=== PATIENT | female | born 1955 | race Two or more races ===

== ENCOUNTER 2017-04-06 10:47 | Outpatient (CLI) | payer OTHER | END 2017-04-06 11:01 | disposition home or self-care (01) | LOC: MRI 10:47 | DX: M50.323 Other cervical disc degeneration at C6-C7 level (principal) | CPT/HCPCS: 72141 ==

== ENCOUNTER 2017-04-06 13:02 | Outpatient (CLI) | payer OTHER | END 2017-04-06 14:00 | disposition home or self-care (01) | LOC: NUCLEAR 13:02 | DX: M85.80 Other specified disorders of bone density and structure, unspecified site (principal) ==

== ENCOUNTER 2017-06-30 08:01 | Outpatient (CLI) | payer OTHER | END 2017-06-30 09:24 | disposition home or self-care (01) | LOC: MAMO-SONO 08:01 | DX: Z12.31 Encounter for screening mammogram for malignant neoplasm of breast (principal) ==

== ENCOUNTER 2017-08-30 08:20 | Outpatient (CLI) | payer OTHER | END 2017-08-30 08:49 | disposition home or self-care (01) | LOC: RAD 501 08:20 | DX: M54.12 Radiculopathy, cervical region (principal); M48.02 Spinal stenosis, cervical region ==

== ENCOUNTER 2017-11-24 10:30 | Outpatient (CLI) | payer OTHER | END 2017-11-24 16:59 | disposition home or self-care (01) | LOC: RAD 10:30 | DX: M48.02 Spinal stenosis, cervical region (principal) ==

== ENCOUNTER 2018-04-06 14:00 | Outpatient (CLI) | payer OTHER | END 2018-04-06 14:04 | disposition home or self-care (01) | LOC: SONOGRAMA 14:00 | DX: M48.02 Spinal stenosis, cervical region (principal); M25.512 Pain in left shoulder ==

== ENCOUNTER 2018-04-12 12:20 | Outpatient (CLI) | payer OTHER | END 2018-04-12 12:40 | disposition home or self-care (01) | LOC: RAD 12:20 | DX: M25.571 Pain in right ankle and joints of right foot (principal) ==

== ENCOUNTER 2018-05-15 10:22 | Outpatient (CLI) | payer OTHER | END 2018-05-15 10:34 | disposition home or self-care (01) | LOC: RAD 10:22 | DX: S82.64XA Nondisplaced fracture of lateral malleolus of right fibula, initial encounter for closed fracture (principal) ==

== ENCOUNTER 2018-07-24 12:48 | Outpatient (CLI) | payer OTHER | END 2018-07-24 13:09 | disposition home or self-care (01) | LOC: SONOGRAMA 12:48 | DX: E21.0 Primary hyperparathyroidism (principal); E03.8 Other specified hypothyroidism; M49.87 Spondylopathy in diseases classified elsewhere, lumbosacral region; M16.0 Bilateral primary osteoarthritis of hip; M75.52 Bursitis of left shoulder ==

== ENCOUNTER 2018-10-09 10:58 | Outpatient (CLI) | payer OTHER | END 2018-10-09 11:00 | disposition home or self-care (01) | LOC: RAD 10:58 | DX: M48.02 Spinal stenosis, cervical region (principal) ==

== ENCOUNTER 2019-05-01 14:33 | Outpatient (CLI) | payer OTHER | END 2019-05-01 14:38 | disposition home or self-care (01) | LOC: RAD 14:33 | DX: R06.09 Other forms of dyspnea (principal); J11.1 Influenza due to unidentified influenza virus with other respiratory manifestations; J45.30 Mild persistent asthma, uncomplicated ==

== ENCOUNTER → 2019-09-20 | Outpatient (CLI) | payer OTHER | END | disposition home or self-care (01) | LOC: RAD 11:42 | PROVIDERS: ATTEND Neurological Surgery | DX: M48.02 Spinal stenosis, cervical region (principal) ==

== ENCOUNTER 2020-07-14 14:30 | Outpatient (CLI) | payer OTHER | END 2020-07-14 14:33 | disposition home or self-care (01) | LOC: RAD 14:30 | PROVIDERS: ATTEND Internal Medicine Rheumatology | DX: M50.021 Cervical disc disorder at C4-C5 level with myelopathy (principal); M50.022 Cervical disc disorder at C5-C6 level with myelopathy; M50.023 Cervical disc disorder at C6-C7 level with myelopathy; M49.82 Spondylopathy in diseases classified elsewhere, cervical region ==

== ENCOUNTER 2021-01-15 07:11 | Outpatient (CLI) | payer OTHER | END 2021-01-15 07:13 | disposition home or self-care (01) | LOC: NUCLEAR 07:11 | PROVIDERS: ATTEND Internal Medicine | DX: G45.1 Carotid artery syndrome (hemispheric) (principal); M48.00 Spinal stenosis, site unspecified ==

== ENCOUNTER → 2021-01-16 | Outpatient (CLI) | payer OTHER | END | disposition home or self-care (01) | LOC: NUCLEAR 07:32 | PROVIDERS: ATTEND Internal Medicine | DX: I87.2 Venous insufficiency (chronic) (peripheral) (principal); I73.9 Peripheral vascular disease, unspecified ==

== ENCOUNTER 2021-03-31 11:46 | Outpatient (CLI) | payer OTHER | END 2021-03-31 11:57 | disposition home or self-care (01) | LOC: SONOGRAMA 11:46 | DX: M25.531 Pain in right wrist (principal); M25.532 Pain in left wrist; M25.541 Pain in joints of right hand; M25.542 Pain in joints of left hand ==

== ENCOUNTER 2021-04-07 10:46 | Outpatient (CLI) | payer OTHER | END 2021-04-07 10:52 | disposition home or self-care (01) | LOC: RAD 10:46 | PROVIDERS: ATTEND Internal Medicine | DX: R05.8 Other specified cough (principal); M25.541 Pain in joints of right hand; M25.542 Pain in joints of left hand ==